=== PATIENT | male | born 1970 ===

== ENCOUNTER 2018-01-28 08:52 | Emergency (ER) | payer OTHER ==
[2018-01-28 09:07] VITALS: BP 147/84; PULSE 55; TEMP 98.5; O2SAT 100
[2018-01-28 09:33] VITALS: RESP 18
--- NOTE | 2018-01-28 09:50 | ED PDOC ---
HPI: Headache Time Seen by Provider: 01/28/18 09:31 Chief Complaint (Nursing): Headache Chief Complaint (Provider): Headache History Per: Patient History/Exam Limitations: no limitations Onset/Duration Of Symptoms: Days (years) Current Symptoms Are (Timing): Still Present Additional Complaint(s): Pt. with headache, not worst in his life. Ongoing for several years. No neck pain, numbness, tingles, weakness, dizziness, facial pain. Pain all over. No chest pain, dyspnea. No fever. No abd pain. No new pain or injury. Advil helps make it go away. Past Medical History Reviewed: Nursing Documentation, Vital Signs Vital Signs: Last Vital Signs Temp 98.5 F 01/28/18 09:30 Pulse 55 L 01/28/18 09:30 Resp 18 01/28/18 09:30 BP 147/84 01/28/18 09:30 Pulse Ox 100 01/28/18 09:30 - Medical History PMH: No Chronic Diseases - Surgical History Surgical History: No Surg Hx - Family History Family History: States: Unknown Family Hx - Social History Alcohol: None Drugs: Denies - Allergies Allergies/Adverse Reactions: Allergies Allergy/AdvReac Type Severity Reaction Status Date / Time No Known Allergies Allergy Verified 01/28/18 09:30 Review of Systems ROS Statement: Except As Marked, All Systems Reviewed And Found Negative Neurological: Positive for: Headache Physical Exam - Reviewed Nursing Documentation Reviewed: Yes Vital Signs Reviewed: Yes - Physical Exam Appears: Positive for: Well, Non-toxic, No Acute Distress Head Exam: Positive for: ATRAUMATIC, NORMAL INSPECTION, NORMOCEPHALIC Skin: Positive for: Normal Color, Warm, DRY Eye Exam: Positive for: EOMI, Normal appearance, PERRL ENT: Positive for: Normal ENT Inspection Neck: Positive for: Normal, Painless ROM Cardiovascular/Chest: Positive for: Regular Rate, Rhythm Respiratory: Positive for: CNT, Normal Breath Sounds Gastrointestinal/Abdominal: Positive for: Normal Exam, Bowel Sounds, Soft. Negative for: Tenderness Back: Positive for: Normal Inspection. Negative for: L CVA Tenderness, R CVA Tenderness Extremity: Positive for: Normal ROM. Negative for: Tenderness, Pedal Edema Neurologic/Psych: Positive for: Alert, roll hauler II-XII, Oriented. Negative for: Motor/Sensory Deficits, Facial Droop - Laboratory Results Result Diagrams: 01/28/18 10:40 01/28/18 10:40 Interpretation Of Abn Labs: no acute - ECG O2 Sat by Pulse Oximetry: 100 - CT Scan/US head Other Rad Studies (CT/US): Read By Radiologist Other Rad Interpretation: no acute - Progress ED Course And Treament: 1140: Stable. AAOx3. Pain free. Tolerated PO. Fu with pcp. Ambulated with no issues. Disposition - Clinical Impression Clinical Impression: Chronic headache disorder - Patient ED Disposition Is Patient to be Admitted: No Counseled Patient/Family Regarding: Studies Performed, Diagnosis, Need For Followup - Disposition Referrals: [facility] [Outside] - 01/30/18 Disposition: Routine/Home Disposition Time: 11:40 Condition: STABLE Additional Instructions: Return if not better in 3 days. Instructions: Headache, Adult Print Language: CONGOLESE
--- NOTE | 2018-01-28 10:52 | CT ---
PROCEDURE: CT HEAD WITHOUT CONTRAST. HISTORY: headache COMPARISON: None available. TECHNIQUE: Axial computed tomography images were obtained through the head/brain without intravenous contrast. Radiation dose: Total exam DLP = 853.47 mGy-cm. This CT exam was performed using one or more of the following dose reduction techniques: Automated exposure control, adjustment of the mA and/or kV according to patient size, and/or use of iterative reconstruction technique. FINDINGS: HEMORRHAGE: No acute parenchymal, subarachnoid or extra-axial hemorrhage. . BRAIN: No mass effect or edema. No atrophy or chronic microvascular ischemic changes. The cerebellar tonsils appear to extend below Sergio's line at the level of the foramen magnum likely representing Chiari 1 malformation. Follow-up MRI of the brain recommended to confirm. VENTRICLES: Unremarkable. No hydrocephalus. CALVARIUM: There are no acute calvarial fractures. There is a there is a small elliptical shaped soft tissue density within the mid and posterior superior parietal scalp abutting the outer table of the cortex. This focus is of uncertain etiology however could represent a small sebaceous cyst. In addition, there is a small scar in the mid anterior superior frontoparietal scalp. . Clinical correlation with physical exam recommended. PARANASAL SINUSES: Unremarkable as visualized. No significant inflammatory changes. There is localized rightward deviation of the nasal septum associate with a prominent right-sided septal bone spur. MASTOID AIR CELLS: Unremarkable as visualized. No inflammatory changes. OTHER FINDINGS: None. IMPRESSION: No evidence of acute intracranial hemorrhage. Apparent Chiari 1 malformation.Recommend follow-up MRI of the brain to confirm. Small elliptical shaped soft tissue density within the mid posterior superior parietal scalp abutting the outer cortex of the calvarium. Rule out sebaceous cyst. Clinical correlation with physical exam recommended.
[2018-01-28 10:54] LABS: BASO % 0.2 % (0.0-2.0); EOS % 0.8 % (0.0-4.0); HEMOGLOBIN 17.6 g/dL (12.0-18.0); LYMPH # 1.6 K/uL (1.0-4.3); LYMPH % 28.6 % (20.0-40.0); MEAN CORPUSCULAR HEMOGLOBIN 32.1 pg (27.0-31.0); MEAN CORPUSCULAR HGB CONC 34.5 g/dL (33.0-37.0); MEAN PLATELET VOLUME 8.6 fl (7.2-11.7); MONO # 0.4 K/uL (0.0-0.8); MONO % 6.4 % (0.0-10.0); NEUT # 3.5 K/uL (1.8-7.0); NRBC % 0.1 % (0.0-0.0); RBC 5.49 Mil/uL (4.40-5.90); RED CELL DISTRIBUTION WIDTH 13.6 % (11.5-14.5); WHITE BLOOD COUNT 5.5 K/uL (4.8-10.8)
[2018-01-28 11:04] LABS: ALB/GLOB RATIO 1.3 (1.0-2.1); ALBUMIN 4.7 g/dL (3.5-5.0); ALT/SGPT 127 U/L (21-72); AST/SGOT 47 U/L (17-59); BLOOD UREA NITROGEN 9 mg/dl (9-20); CALCIUM 9.5 mg/dL (8.4-10.2); GFR AFRICAN-AMERICAN > 60; GFR NON-AFRICAN AMERICAN > 60
== END 2018-01-28 11:56 | disposition home or self-care (01) ==
LOC: H.ER 08:52
DX: R51 Headache (principal)
CPT/HCPCS: 70450; 80053; 85025; 96374; 99285; J1885